=== PATIENT | male | born 1980 | race Caucasian/White ===

== ENCOUNTER 2018-01-09 08:51 | Emergency (ER) | payer BC ==
[2018-01-09 09:40] VITALS: BP 130/86
--- NOTE | 2018-01-09 10:13 | UC ---
Skin Complaint HPI - HPI Summary HPI Summary: left forearm redness x 2 days had a bee sting on his left forearm , no the area is getting red, swelling, tender, warm to touch no fever, no chills, no sob - History of Current Complaint Chief Complaint: UCSkin Time Seen by Provider: 01/09/18 10:05 Stated Complaint: HOTNER STING Hx Obtained From: Patient Onset/Duration: Gradual Onset, Lasting Days - 2, Still Present Timing: Constant Onset Severity: Moderate Current Severity: Moderate Pain Intensity: 5 Location: Discrete - left forearm Character: Swelling, Pruritus, Pain, Redness, Raised, Painful Aggravating Factor(s): Nothing Alleviating Factor(s): Nothing Associated Signs & Symptoms: Positive: Tenderness. Negative: Nausea, Vomiting, Numbness, Weakness, Difficulty Breathing, Fever, Chills, Cough, Wheezing Related History: Insect Bite/Sting - Allergy/Home Medications Allergies/Adverse Reactions: Allergies Allergy/AdvReac Type Severity Reaction Status Date / Time No Known Allergies Allergy Verified 01/09/18 09:34 Home Medications: Home Medications [id number] Es (Nf) [Excedrin Extra Strength 250-250-65 mg (NF)] 1 - 2 tab PO Q12H PRN 01/09/18 [History Confirmed 01/09/18] Acetaminophen [Acetaminophen Extra Strength] 500 - 1,000 mg PO Q6H PRN 01/09/18 [History Confirmed 01/09/18] DULoxetine DR CAP* [Cymbalta CAP*] 60 mg PO DAILY 01/09/18 [History Confirmed ] traZODone TAB* [Desyrel TAB*] 12.5 mg PO BEDTIME 01/09/18 [History Confirmed ] Review of Systems Constitutional: Negative Skin: Rash Eyes: Negative ENT: Negative Respiratory: Negative Cardiovascular: Negative Is Patient Immunocompromised?: No All Other Systems Reviewed And Are Negative: Yes PMH/Surg Hx/FS Hx/Imm Hx Previously Healthy: Yes - Surgical History Surgical History: Yes Surgery Procedure, Year, and Place: L4-S1 Fusion, 2016, [place] - Family History Known Family History: Negative: Diabetes - Social History Alcohol Use: Weekly Substance Use Type: None Smoking Status (MU): Never Smoked Tobacco Physical Exam Triage Information Reviewed: Yes Appearance: Well-Appearing, No Pain Distress, Obese Vital Signs: Initial Vital Signs Temp 98.5 F 01/09/18 09:31 Pulse 72 01/09/18 09:31 Resp 16 01/09/18 09:31 BP 130/86 01/09/18 09:31 Pulse Ox 98 01/09/18 09:31 Eyes: Positive: Conjunctiva Clear ENT: Positive: Normal ENT inspection, Hearing grossly normal, Pharynx normal Neck: Positive: Supple, Nontender, No Lymphadenopathy Respiratory: Positive: Chest non-tender, Lungs clear, Normal breath sounds Cardiovascular: Positive: RRR, No Murmur, Pulses Normal Skin: Positive: Other - left forearm : + area of erythe, swelling, warm to touch , mild tenderness Course/Dx - Diagnoses Provider Diagnoses: cellulitis left forearm. insect bite left forearm Discharge - Sign-Out/Discharge Documenting (check all that apply): Patient Departure All imaging exams completed and their final reports reviewed: No Studies - Discharge Plan Condition: Stable Disposition: HOME Prescriptions: Cephalexin CAP* [Keflex CAP*] 500 mg PO TID #30 cap Patient Education Materials: Cellulitis (ED) Referrals: No Primary Care Phys,NOPCP [Primary Care Provider] - 5 Days - Billing Disposition and Condition Condition: STABLE Disposition: Home
== END 2018-01-09 10:15 | disposition home or self-care (01) ==
LOC: UCCORT 08:51
DX: S50.862A Insect bite (nonvenomous) of left forearm, initial encounter (principal); L03.114 Cellulitis of left upper limb; Z79.82 Long term (current) use of aspirin; W57.XXXA Bitten or stung by nonvenomous insect and other nonvenomous arthropods, initial encounter; Y92.9 Unspecified place or not applicable
CPT/HCPCS: 99202; G0463

== ENCOUNTER 2018-02-09 07:22 | Emergency (ER) | payer BC ==
[2018-02-09 07:56] VITALS: BP 128/90
--- NOTE | 2018-02-09 08:44 | UC ---
General HPI - HPI Summary HPI Summary: Patient presents to urgent care settings or Monday he developed bodyaches. Patient head congestion Patient states he's also had diarrhea for 24 hours. Pt has been able to eat and drink. no nausea, vomiting. No abdominal pain. Patient states he's been taking Tylenol and Mucinex, which seems to help but he can tell when it is wearing off. Patient woke last night with a sore throat. Patient states Tylenol helped. Patient states he doesn't CPAP and had a dental appliance for sleep apnea. Patient states he took this out in the Tylenol seemed to kick in. Patient has been eating and drinking without discomfort. 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 Patient did not go to work yesterday doesn't think today. Patient states he just feels fatigued with no energy. Pt's medication reviewed this visit - History of Current Complaint Chief Complaint: UCRespiratory Stated Complaint: WEAKNESS,CHILLS,SORE THROAT Time Seen by Provider: 02/09/18 08:28 Hx Obtained From: Patient Pain Intensity: 6 - Allergy/Home Medications Allergies/Adverse Reactions: Allergies Allergy/AdvReac Type Severity Reaction Status Date / Time No Known Allergies Allergy Verified 02/12/18 08:05 PMH/Surg Hx/FS Hx/Imm Hx Previously Healthy: Yes - Surgical History Surgical History: Yes Surgery Procedure, Year, and Place: L4-S1 Fusion, 2016, [place] - Family History Known Family History: Positive: Other - noncontributory Negative: Diabetes - Social History Occupation: Employed Full-time Lives: With Family Alcohol Use: Weekly Alcohol Amount: 12 Substance Use Type: None Smoking Status (MU): Never Smoked Tobacco Review of Systems Constitutional: Fever, Fatigue ENT: Sore Throat, Sinus Congestion Musculoskeletal: Myalgia All Other Systems Reviewed And Are Negative: Yes Physical Exam - Summary Physical Exam Summary: Vital Signs Reviewed: Yes A+Ox3, tired appearing Eyes: Conjunctiva Clear, LUCAS. EOM intact and full ENT: Hearing grossly normal TM x 2 clear, rturbinates inflammed, mmoist, uvula midline, no exudate, no erythema Neck: Positive: Supple, no LA Respiratory: Positive: No respiratory distress, No accessory muscle use + CTA throughout no w/r, intermittent cough Cardiovascular: RRR nl s1, s2 no m/r CBT <2 sec abd soft + BS nt/nd no guarding, no distension Musculoskeletal Exam: ZUÑIGA x 4 without difficulty Strength Intact, ROM Intact Neurological: Positive: Alert, + sensation throughout Psychological: Positive: Normal Response To Family Skin: Positive: no rash, no ecchymosis Triage Information Reviewed: Yes Vital Signs: Initial Vital Signs Temp 97.6 F 02/09/18 07:49 Pulse 86 02/09/18 07:49 Resp 18 02/09/18 07:49 BP 128/90 02/09/18 07:49 Pulse Ox 97 02/09/18 07:49 Course/Dx - Course Course Of Treatment: Pt presents with progressive sore throat,body aches and fatigue. strep neg. suspect viral. motrin/apap. hydrate. rest. secretion precaution. return precaution - Differential Dx - Multi-Symptom Provider Diagnoses: URI. viral syndrome Discharge - Sign-Out/Discharge Documenting (check all that apply): Patient Departure All imaging exams completed and their final reports reviewed: No Studies - Discharge Plan Condition: Stable Disposition: HOME Prescriptions: Fluticasone NASAL SPRAY 50MCG* [Flonase NASAL SPRAY 50MCG*] 2 spray BOTH NARES DAILY #1 btl Patient Education Materials: Upper Respiratory Infection (ED), Viral Syndrome ( ED) Forms: *Work Release Referrals: Bertin Call MD [Primary Care Provider] - Additional Instructions: - Stay well hydrated. Drink plenty of non-alcoholic, non-caffinated beverages. - Alternate ibuprofen (Advil, Motrin) 600mg and Tylenol every 3 hours for pain or fever. Take with food. Do NOT take for more than 4-5 days. - These infections are spread by secretions - do NOT share eating or drinking utensils - clean items you share with other people such as cell phones, computer mouse, TV remote, computer tablets,etc. Once you start to feel better , change your toothbrush and your pillowcase - get plenty of restful sleep - humidify the air in the room where you sleep - boil water, run a hot steam shower, vaporizer, cups of water by heat register - continue okay to take over the counter decongestant and cough medication - use nasal spray as prescribed - okay to take immodium as needed for diarrhea - contact your doctor or return with questions or concerns - Billing Disposition and Condition Condition: STABLE Disposition: Home
== END 2018-02-09 08:50 | disposition home or self-care (01) ==
LOC: UCCORT 07:22
DX: J06.9 Acute upper respiratory infection, unspecified (principal); B34.9 Viral infection, unspecified
CPT/HCPCS: 87651; 99212; G0463

== ENCOUNTER 2018-02-12 07:52 | Emergency (ER) | payer BC ==
[2018-02-12 08:13] VITALS: BP 145/87
--- NOTE | 2018-02-12 08:48 | UC ---
Respiratory Complaint HPI - HPI Summary HPI Summary: The patient is a 37-year-old male with a 5 day history of progressively worsening cough. He has a history of childhood asthma and has been wheezing. Cough is productive of a greenish phlegm. He has had fever and chills. Also is concerned that he may be developing a dental abscess. - History of Current Complaint Chief Complaint: UCRespiratory Stated Complaint: RECKECK - COLD SXS Time Seen by Provider: 02/12/18 08:22 Hx Obtained From: Patient Onset/Duration: Gradual Onset, Lasting Days Timing: Constant Severity Initially: Mild Severity Currently: Moderate Pain Intensity: 5 Pain Scale Used: 0-10 Numeric Character: Cough: Productive Associated Signs And Symptoms: Positive: Fever, Chills, Wheezing, Nasal Congestion - Allergies/Home Medications Allergies/Adverse Reactions: Allergies Allergy/AdvReac Type Severity Reaction Status Date / Time No Known Allergies Allergy Verified 02/12/18 08:05 Home Medications: Home Medications Ibuprofen TAB* [Advil TAB*] 600 mg PO Q6H PRN 02/12/18 [History Confirmed ] PMH/Surg Hx/FS Hx/Imm Hx Previously Healthy: Yes Respiratory History: Asthma - Surgical History Surgical History: Yes Surgery Procedure, Year, and Place: L4-S1 Fusion, 2016, [place] - Family History Known Family History: Positive: Hypertension Negative: Diabetes - Social History Alcohol Use: Daily Alcohol Amount: 2-3 drinks daily Substance Use Type: None Smoking Status (MU): Never Smoked Tobacco Review of Systems Constitutional: Fever, Chills, Fatigue Skin: Negative Eyes: Negative ENT: Nasal Discharge, Sinus Congestion Respiratory: Cough Cardiovascular: Negative Gastrointestinal: Negative Genitourinary: Negative Motor: Negative Neurovascular: Negative Musculoskeletal: Negative Neurological: Negative Psychological: Negative All Other Systems Reviewed And Are Negative: Yes Physical Exam Triage Information Reviewed: Yes Appearance: Well-Appearing, No Pain Distress, Well-Nourished Vital Signs: Initial Vital Signs Temp 98.0 F 02/12/18 08:04 Pulse 84 02/12/18 08:04 Resp 16 02/12/18 08:04 BP 145/87 02/12/18 08:04 Pulse Ox 99 02/12/18 08:04 Vital Signs Reviewed: Yes Eyes: Positive: Conjunctiva Clear ENT: Positive: Hearing grossly normal, Pharynx normal, Nasal congestion, TMs normal, Uvula midline. Negative: Nasal drainage, TM bulging, TM dull, TM red, Tonsillar swelling, Tonsillar exudate, Trismus, Muffled voice, Hoarse voice, Dental tenderness, Sinus tenderness Dental: Positive: Abscess @ Neck: Positive: Supple, Nontender, No Lymphadenopathy Respiratory: Positive: Wheezing. Negative: Normal breath sounds, No respiratory distress Cardiovascular: Positive: RRR, No Murmur Musculoskeletal: Positive: ROM Intact, No Edema Neurological: Positive: Alert Psychological Exam: Normal Skin Exam: Normal UC Diagnostic Evaluation - Laboratory O2 Sat by Pulse Oximetry: 99 - normal/not hypoxic Respiratory Course/Dx - Differential Dx/Diagnosis Provider Diagnoses: acute bronchitis with bronchospasm. dental abscess. elevated BP with diagnosis of hypertension Discharge - Sign-Out/Discharge Documenting (check all that apply): Patient Departure All imaging exams completed and their final reports reviewed: No Studies - Discharge Plan Condition: Stable Disposition: HOME Prescriptions: Albuterol HFA INHALER* [Ventolin HFA Inhaler*] 2 puff INH QID #1 mdi Amoxicillin/Clavulanate TAB* [Augmentin TAB 875*] 875 mg PO BID #14 tab predniSONE [Deltasone 20 MG TAB] 40 mg PO DAILY #10 tab Patient Education Materials: Dental Abscess (ED), Acute Bronchitis (ED) Referrals: Bertin Call MD [Primary Care Provider] - 4 Days (if not better) - Billing Disposition and Condition Condition: STABLE Disposition: Home Images Dental: 1 - abscess
== END 2018-02-12 08:50 | disposition home or self-care (01) ==
LOC: UCCORT 07:52
DX: J20.9 Acute bronchitis, unspecified (principal); K04.7 Periapical abscess without sinus; R03.0 Elevated blood-pressure reading, without diagnosis of hypertension
CPT/HCPCS: 99212; G0463

== ENCOUNTER 2019-04-19 08:49 | Emergency (ER) | payer BC ==
[2019-04-19 09:27] VITALS: BP 139/82
--- NOTE | 2019-04-19 09:56 | UC ---
Respiratory Complaint HPI - HPI Summary HPI Summary: Progressive cough, congestion x 3 weeks. states was improving, got work x 3 days. + yellow/green sputum fatigue, worse at night, sinus congestion. no rash works in cold environment, irritating to chest. Using cough drops Pt states coughing causes chest muscle soreness - no chest pain at rest Medications as entered in EMR by lens coater were considered - History of Current Complaint Chief Complaint: UCRespiratory Stated Complaint: COUGH,CONGESTION Time Seen by Provider: 04/19/19 09:43 Hx Obtained From: Patient Onset/Duration: Gradual Onset, Lasting Days Pain Intensity: 1 - Allergies/Home Medications Allergies/Adverse Reactions: Allergies Allergy/AdvReac Type Severity Reaction Status Date / Time No Known Allergies Allergy Verified 02/12/18 08:05 Home Medications: Home Medications Cbd Drops 4 drop PO QAM 04/19/19 [History Confirmed 04/19/19] PMH/Surg Hx/FS Hx/Imm Hx Previously Healthy: Yes - Surgical History Surgical History: Yes Surgery Procedure, Year, and Place: L4-S1 Fusion, 2016, [place] - Family History Known Family History: Positive: Hypertension, Non-Contributory Negative: Diabetes - Social History Occupation: Employed Full-time Lives: With Family Alcohol Use: Weekly Alcohol Amount: 6 Substance Use Type: None Smoking Status (MU): Never Smoked Tobacco Review of Systems All Other Systems Reviewed And Are Negative: Yes Constitutional: Positive: Fatigue Skin: Positive: Negative Eyes: Positive: Negative ENT: Positive: Nasal Discharge, Sinus Congestion Respiratory: Positive: Cough Cardiovascular: Positive: Negative Physical Exam - Summary Physical Exam Summary: Vital Signs Reviewed: Yes A+Ox3,congested Eyes: Conjunctiva Clear, LUCAS. EOM intact and full ENT: Hearing grossly normal TM x 2 clear, turbiatnes inflammed and boggy, + PND , mmoist, uvula midline, no exudate, no erythema Neck: Positive: Supple Respiratory: Positive: No respiratory distress, No accessory muscle use + intermittent cough, scattered wheeze Cardiovascular: RRR nl s1, s2 no m/r CBT <2 sec abd soft + BS nt/nd no guarding, no distension Musculoskeletal Exam: ZUÑIGA x 4 without difficulty Strength Intact, ROM Intact Neurological: Positive: Alert, + sensation throughout Psychological: Positive: Normal Response To dining host Skin: Positive: no rash, no ecchymosis Triage Information Reviewed: Yes Vital Signs: Initial Vital Signs Temp 97.7 F 04/19/19 09:18 Pulse 72 04/19/19 09:18 Resp 20 04/19/19 09:18 BP 139/82 04/19/19 09:18 Pulse Ox 100 04/19/19 09:18 Respiratory Course/Dx - Course Course Of Treatment: Pt with progressive cough x 3 weeks worse x 3 days yellow secretions, congested. feels wheezing at work On exam, vss coarse cough , scattered wheeze will start abx, pred, mdi pt has taken pred before hydrate rest humidified air secretion precautions - Differential Dx/Diagnosis Provider Diagnosis: Acute bronchitis Discharge ED - Sign-Out/Discharge Documenting (check all that apply): Patient Departure All imaging exams completed and their final reports reviewed: No Studies - Discharge Plan Condition: Stable Disposition: HOME Prescriptions: Albuterol HFA INHALER* [Ventolin HFA Inhaler*] 2 puff INH Q4H PRN #1 mdi PRN Reason: wheeze Amoxicillin PO (*) [Amoxicillin 875 MG (*)] 875 mg PO BID #20 tab predniSONE TAB* [Deltasone TAB*] 50 mg PO DAILY #5 tab Patient Education Materials: Acute Bronchitis (ED) Referrals: Bertin Call MD [Primary Care Provider] - Additional Instructions: -Take antibiotics and prednisone exactly as prescribed until gone -Use your albuterol puffer - 2 puffs every 4 hours for the next 2 days - then as needed -Stay well hydrated - avoid excess caffeine and all alcohol - eat regular, healthy meals - - humidify the air in the room where you sleep - boil water, run a hot steam shower, vaporizer, cups of water by heat register - okay to take over the counter decongestant and cough medication -- These infections are spread by secretions - do NOT share eating or drinking utensils - clean items you share with other people such as cell phones, computer mouse, TV remote, computer tablets,etc.. Once you have been antibiotics for 2 days, change your toothbrush and your pillowcase. -Contact your doctor to arrange a follow-up appointment this week. Call your doctor, return here or go to the emergency department with any questions or concerns - Billing Disposition and Condition Condition: STABLE Disposition: Home
== END 2019-04-19 10:03 | disposition home or self-care (01) ==
LOC: UCCORT 08:49
DX: J20.9 Acute bronchitis, unspecified (principal)
CPT/HCPCS: 99212; G0463

== ENCOUNTER 2019-04-23 07:30 | Emergency (ER) | payer BC ==
[2019-04-23 07:40] VITALS: BP 120/85
--- NOTE | 2019-04-23 07:55 | UC ---
Abdominal Pain Male HPI - HPI Summary HPI Summary: nausea and vomiting x 1 days cramping abdominal pain x 1 day 5 out of 10 , no radiation worse with eating , better with NPO + diarrhea , fever, chills and body aches has been on antibiotics and steroid for the past 5 days for Bronchitis - History of Current Complaint Chief Complaint: UCGeneralIllness Stated Complaint: FATIGUE/BODY ACHES/CHILLS/COUGH Time Seen by Provider: 04/23/19 07:36 Hx Obtained From: Patient Onset/Duration: Gradual Onset, Lasting Days - 1, Still Present Timing: Constant Severity Initially: Moderate Severity Currently: Moderate Pain Intensity: 0 Location: Diffuse Radiates: No Character: Cramping Aggravating Factor(s): Food Alleviating Factor(s): Nothing Associated Signs And Symptoms: Positive: Fever, Nausea, Vomiting, Diarrhea. Negative: Back Pain, Constipation, Blood in Stool - Allergies/Home Medications Allergies/Adverse Reactions: Allergies Allergy/AdvReac Type Severity Reaction Status Date / Time No Known Allergies Allergy Verified 04/23/19 07:40 PMH/Surg Hx/FS Hx/Imm Hx - Additional Past Medical History Additional PMH: Chronic Back Pain, fibromyalgia Respiratory History: Asthma - Surgical History Surgical History: Yes Surgery Procedure, Year, and Place: L4-S1 Fusion, 2016, [place] - Family History Known Family History: Positive: Hypertension, Non-Contributory Negative: Diabetes - Social History Alcohol Use: Weekly Alcohol Amount: 6 Substance Use Type: None Smoking Status (MU): Never Smoked Tobacco Review of Systems All Other Systems Reviewed And Are Negative: Yes Constitutional: Positive: Fever, Chills, Fatigue Skin: Positive: Negative Eyes: Positive: Negative ENT: Positive: Negative Cardiovascular: Positive: Negative Gastrointestinal: Positive: Abdominal Pain, Vomiting, Diarrhea, Nausea Genitourinary: Positive: Negative Is Patient Immunocompromised?: No Physical Exam Triage Information Reviewed: Yes Appearance: Well-Appearing, No Pain Distress, Obese Vital Signs: Initial Vital Signs Temp 97.8 F 04/23/19 07:36 Pulse 82 04/23/19 07:36 Resp 20 04/23/19 07:36 BP 120/85 04/23/19 07:36 Pulse Ox 99 04/23/19 07:36 Vital Signs Reviewed: Yes Eye Exam: Normal Eyes: Positive: Conjunctiva Clear ENT: Positive: Normal ENT inspection, Hearing grossly normal, Pharynx normal Neck: Positive: Supple, Nontender, No Lymphadenopathy Respiratory: Positive: Chest non-tender, Lungs clear, Normal breath sounds Cardiovascular: Positive: RRR, No Murmur, Pulses Normal Abdomen Description: Positive: Nontender, Soft. Negative: CVA Tenderness (R), CVA Tenderness (L), Distended, Guarding Bowel Sounds: Positive: Present Skin Exam: Normal Abd Pain Male Course/Dx - Differential Dx/Clinical Impression Provider Diagnosis: Gastroenteritis Discharge ED - Sign-Out/Discharge Documenting (check all that apply): Patient Departure All imaging exams completed and their final reports reviewed: No Studies - Discharge Plan Condition: Stable Disposition: HOME Patient Education Materials: Gastroenteritis (ED) Forms: *Work Release Referrals: Bertin Call MD [Primary Care Provider] - If Needed Additional Instructions: may stop the antibiotics , stop prednisone - Billing Disposition and Condition Condition: STABLE Disposition: Home
== END 2019-04-23 07:53 | disposition home or self-care (01) ==
LOC: UCCORT 07:30
DX: K52.9 Noninfective gastroenteritis and colitis, unspecified (principal); J45.909 Unspecified asthma, uncomplicated; R53.83 Other fatigue; R68.83 Chills (without fever)
CPT/HCPCS: 99211; G0463